=== PATIENT | male | born 1995 | race African-American/Black ===

== ENCOUNTER 2016-11-24 02:26 | Emergency (ER) | payer MEDICAID, OTHER ==
[~2016-11-24] VITALS: Ht 177.8 cm; Wt 70.0 kg
[~2016-11-24 02:26] MED LIST: ALBU0.086 INH; PRED20 PO
[2016-11-24 02:28] VITALS: BP 134/81; PULSE 60; RESP 16; TEMP 97.9; O2SAT 96
[2016-11-24] MEDS ORDERED: VENTAER INH (03:24)
[2016-11-24] MEDS ORDERED: PRED-503 PO (03:24)
--- NOTE | 2016-11-24 03:25 | PD ---
HPI Chief Complaint: Respiratory Symptoms Time Seen by Provider: 03:21 Travel History International Travel<30 days: No Contact w/Intl Traveler<30days: No Traveled to known affect area: No History of Present Illness HPI This is a well 21-year-old man who presents to the emergency department complaining of difficulty breathing. He is a history of asthma. He is out of his medications. Only has very rare trouble with it. States he gets trouble when he is around dust. He's been moving and storage appears very [place]. Around 8 PM tonight he started getting some significant trouble breathing. He thus came to the emergency department. Feels much better now. Symptoms seem to wane some. He otherwise had been feeling generally well and healthy. No recent URI symptoms. No other cough or cold symptoms. No other complaints. History Past Medical History Narrative Medical Asthma Tetanus Vaccination: Never Vaccinated Influenza Vaccination: No Social History Alcohol Use: No Tobacco Use: No Allergies-Medications (Allergen,Severity, Reaction): Coded Allergies: No Known Allergies (Unverified , 11/24/16) Reported Meds & Prescriptions Reported Meds & Active Scripts Active Review of Systems Except as stated in HPI: all other systems reviewed are Neg Physical Exam Narrative GENERAL: Well-appearing 21-year-old man, no acute distress. SKIN: Focused skin assessment warm/dry. CARDIOVASCULAR: Regular rate and rhythm. No murmur appreciated. RESPIRATORY: Moderate diffuse wheezing. No respiratory distress. Good air movement. GASTROINTESTINAL: Abdomen soft, non-tender, nondistended. Hepatic and splenic margins not palpable. MUSCULOSKELETAL: No obvious deformities. No clubbing. No cyanosis. No edema. NEUROLOGICAL: Awake and alert. No obvious cranial nerve deficits. Motor grossly within normal limits. Normal speech. PSYCHIATRIC: Appropriate mood and affect; insight and judgment normal. Data Data Last Documented VS Vital Signs Date Time Temp Pulse Resp B/P Pulse Ox O2 Delivery O2 Flow Rate FiO2 11/24/16 02:28 97.9 60 16 134/81 96 Orders Prednisone (Deltasone) (11/24/16 03:30) Albuterol Hfa Inh (Proair Hfa Inh) (11/24/16 03:30) MDM Medical Decision Making Medical Screen Exam Complete: Yes Emergency Medical Condition: Yes Differential Diagnosis Asthma, pneumonia, URI, other Narrative Course Medical decision making INITIAL: 21-year-old male with mild asthma exacerbation. Looks well now. Improved. We'll dispense an inhaler, steroids, outpatient follow-up. Diagnosis Primary Impression: Asthma exacerbation Additional Instructions: Use albuterol every 4-6 hours. Take prednisone as prescribed. Fall with her primary physician in 3-4 days every not feeling completely well. Return to the emergency department for any worsening trouble breathing, or any other new or worsening symptoms. Med/Other Pt SpecificInfo: Prescription(s) given Scripts Albuterol 18 GM Inh (Ventolin Hfa 18 GM Inh)90 Mcg/Act Aer2 Puff INH Q4-6H PRN ( SHORTNESS OF BREATH) #1 INHALER Prov:Neil Wong MD 11/24/16 Prednisone (Deltasone)20 Mg Tab60 Mg PO DAILY 5 Days Prov:Neil Wong MD 11/24/16 Disposition: 01 DISCHARGE HOME Condition: Stable Neil Wong MD Nov 24, 2016 03:25
[2016-11-24] MEDS ORDERED: ALBUTEROL SULFATE 90 MCG/ACT HFA 8 GM INHALER INH ONE (03:30)
[2016-11-24] MEDS ORDERED: predniSONE 20 MG TAB PO ONE (03:30)
== END 2016-11-24 03:38 | disposition home or self-care (01) ==
LOC: NEPC 02:26
DX: J45.901 Unspecified asthma with (acute) exacerbation (principal)
CPT/HCPCS: 99283; J7512